=== PATIENT | male | born 1945 | race Caucasian/White ===

== ENCOUNTER 2019-10-23 07:11 | Emergency (ER) | payer OTHER ==
[2019-10-23 08:16] LABS: Band 39 % (5-11); Eosinophils 1 % (0-10); Hemoglobin 12.1 g/dL (14.0-18.0); Lymphocytes 7 % (21-51); MDiff Complete? YES; Mean Corpuscular HGB CONC 30.7 g/dL (32.0-36.0); Mean Corpuscular Hemoglobin 29.5 pg (27.0-31.0); Mean Corpuscular Volume 95.9 fL (78.0-98.0); Metamyelocyte 1 % (0-0); Monocytes 5 % (0-10); Neutrophil 47 % (42-75); Platelet Count 157 thou/uL (130-400); Platelet Morphology Comment Appears Adequate; RBC Distribution Width 13.4 % (11.5-14.5); RBC Morphology Normal; White Blood Cell (WBC) Count 5.6 thou/uL (4.8-10.8)
[2019-10-23] MEDS ORDERED: Sodium Chloride 0.9% 1,000 ML ONE (08:20)
[2019-10-23] MEDS ORDERED: Acetaminophen 325 MG TAB ONE (08:20)
[2019-10-23] MEDS ORDERED: Adacel (T-DAP) 0.5 ML SYRINGE ONE (08:20)
[2019-10-23 08:23] LABS: ALT (SGPT) 14 U/L (8-55); AST (SGOT) 24 U/L (5-34); Albumin 3.8 g/dL (3.4-4.8); Alkaline Phosphatase 67 U/L (40-110); Anion Gap 12 mmol/L (10-20); BUN (Urea Nitrogen) 12 mg/dL (8.4-25.7); Bilirubin, Total 0.4 mg/dL (0.2-1.2); Calc. Creatinine Clearance 0 mL/min (70-130); Calcium 8.6 mg/dL (7.8-10.44); Carbon Dioxide 24 mmol/L (23-31); Chloride 105 mmol/L (98-107); Estimated GFR-MDRD Greater than 90; Globulin 2.7 g/dL (2.4-3.5); Glucose 99 mg/dL (83-110); Potassium 3.4 mmol/L (3.5-5.1); Protein, Total 6.5 g/dL (5.8-8.1); Sodium 138 mmol/L (136-145)
--- NOTE | 2019-10-23 09:10 | CT ---
CT CERVICAL SPINE NONCONTRAST: DATE: 10/23/2019 HISTORY: cervical trauma. 74-year-old male status post fall. FINDINGS: There are no jumped or perched facets. There is no evidence of acute fracture. The vertebral body hei ghts are maintained. There is no prevertebral soft tissue swelling. There are degenerative disc changes and facet osteoarthrosis. IMPRESSION: 1) Cervical spondylosis. 2) no evidence of acute fracture or acute traumatic subluxation.
[2019-10-23 09:11] LABS: Bilirubin Negative (Negative); Blood, Urine Trace (Negative); Clarity Clear (Clear); Glucose, Urine (Dipstick) Negative (Negative); Leukocyte Negative (Negative); Nitrite Negative (Negative); Protein, Urine (Dipstick) Negative (Neg-Trace); Urobilinogen 0.2 mg/dL (Less than 2)
--- NOTE | 2019-10-23 09:14 | CT ---
CT HEAD WITHOUT IV CONTRAST COMPARISON: None HISTORY: Laceration to head after fall. Fever. TECHNIQUE: Axial CT imaging at 5 mm intervals from vertex through skull base without contrast FINDINGS: There is decreased attenuation in the periventricular white matter which is nonspecific but likely re flective of moderate to severe chronic small vessel ischemic changes. Encephalomalacia seen in the bifrontal lobes consistent with prior insult. There are areas of diminished attenuation seen in each basal ganglia suggesting lacunar infarctions of indeterminate age. There is mild cerebral volume loss. The ventricular system is normal in size, shape, and position for the degree of sulcal atrophy. There is no evidence of an acute infarction, hemorrhage, mass effect, or midline shift. Visualized paranasal sinuses are clear. . A few right mastoid effusions are present. Osseous structures appear intact. No calvarial fracture is appreciated. There is a small vinita hole le ft parietal bone. IMPRESSION: 1. No acute intracranial abnormality demonstrated. 2. Chronic small vessel ischemic changes and cerebral volume loss. 3. Bifrontal areas of encephalomalacia suggesting prior insult. 4. 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 5. Few small right mastoid effusions are present.
--- NOTE | 2019-10-23 09:18 | RAD ---
EXAM: CHEST ONE VIEW HISTORY: Follow laceration to head. Fever. COMPARISON: None FINDINGS: Cardiac silhouette is magnified by projection. Pulmonary vasculature is at the upper limits of normal . Slight blunting of the left lateral costophrenic angle is present. This could represent very small left pleural effusion, but this is thought to be related to overlying soft tissue density. Line ar densities are seen in the upper lung zones bilaterally which may represent minimal atelectasis versus scarring. There is no consolidation seen bilaterally. Calcified granuloma is seen in the right midlung zone. Vascular calcifications are seen in the thoracic aorta. IMPRESSION: No acute cardiopulmonary process.
[2019-10-23] MEDS ORDERED: Lidocaine 1% w/Epinephrine 1:100K 30 ML VIAL ONE (09:20)
[2019-10-23 09:28] LABS: Bacteria/HPF None Seen HPF (None Seen); RBC/HPF 0-3 HPF (0-3); Squamous Epithelial 0-3 HPF (0-3); WBC/HPF None Seen HPF (0-3)
[2019-10-23] MEDS ORDERED: Bacitracin 1 PK ONE (09:47)
[2019-10-24 09:58] LABS: SARS-CoV-2 MS2 Positive; SARS-CoV-2 N Gene Positive; SARS-CoV-2 S Gene Positive; SARS-CoV-2 orf1ab Positive
== END 2019-10-23 09:58 ==
LOC: NAV ERS 07:11
DX: S01.01XA Laceration without foreign body of scalp, initial encounter (principal); U07.1 COVID-19; R50.9 Fever, unspecified; D64.9 Anemia, unspecified; K21.9 Gastro-esophageal reflux disease without esophagitis; I10 Essential (primary) hypertension; J44.9 Chronic obstructive pulmonary disease, unspecified; M19.90 Unspecified osteoarthritis, unspecified site; M06.9 Rheumatoid arthritis, unspecified; W01.0XXA Fall on same level from slipping, tripping and stumbling without subsequent striking against object, initial encounter
CPT/HCPCS: 12002; 70450; 71045; 72125; 80053; 81003; 81015; 83605; 85025; 87040; 87635; 87804; 90471; 90715; J2001; J7050; U0003

== ENCOUNTER 2021-04-02 05:09 | Emergency (ER) | payer OTHER ==
[2021-04-02] MEDS ORDERED: Lidocaine 1% (PF) 30 ML VIAL ONE (05:30)
[2021-04-02] MEDS ORDERED: Boostrix 0.5 ML (Tdap) VIAL ONE (05:31)
== END 2021-04-02 08:00 ==
LOC: NAV ERS 05:09
DX: S01.81XA Laceration without foreign body of other part of head, initial encounter (principal); F03.90 Unspecified dementia, unspecified severity, without behavioral disturbance, psychotic disturbance, mood disturbance, and anxiety; K21.9 Gastro-esophageal reflux disease without esophagitis; M19.90 Unspecified osteoarthritis, unspecified site; J44.9 Chronic obstructive pulmonary disease, unspecified; M06.9 Rheumatoid arthritis, unspecified; Z79.82 Long term (current) use of aspirin; Z79.899 Other long term (current) drug therapy
CPT/HCPCS: 12002; 70450; 72125; 90471; 90715; J2001